=== PATIENT | male | born 1990 | race Caucasian/White ===

== ENCOUNTER 2017-01-28 13:43 | Emergency (ER) | payer BC, OTHER ==
--- NOTE | 2017-01-28 14:20 | Emergency Department Record ---
History of Present Illness - General Chief complaint: Eye Problem Stated complaint: OBJECT IN LT EYE Time Seen by Provider: 01/28/17 13:50 Source: Patient, RN notes reviewed Mode of Arrival: Ambulatory - History of Present Illness Initial comments: patient got something in the left eye and he rinsed it out and it is getting better each day. Onset/Timin -: Days(s) Onset Description: Sudden Location: Left eye Place: Home, Street/outdoors If Injury: Chemical exposure, Other Eye Symptoms: Foreign body sensation Consistency: Constant Associated Symptoms: Other Treatments Prior to Arrival: None - Related Data Visual acuity (L) = 20/: 25 Visual acuity (R) = 20/: 25 With correction: No Hx Tetanus Toxoid Vaccination: Yes Home Medications Medication Instructions Recorded Confirmed Last Taken No Home Med [NO HOME MEDS] 01/28/17 01/28/17 Unknown Allergies Allergy/AdvReac Type Severity Reaction Status Date / Time amoxicillin Allergy PT UNSURE Verified 01/28/17 13:55 OF REACTION Penicillins Allergy PT UNSURE Verified 01/28/17 13:55 OF REACTION Travel Screening - Travel/Exposure Within Last 30 Days Have you traveled within the last 30 days?: No Review of Systems Reviewed: No additional complaints except as noted below Constitutional: Reports: As per HPI. Denies: Chills, Fever, Malaise, Night sweats, Weakness, Weight change Eyes: Reports: As per HPI. Denies: Eye discharge, Eye pain, Photophobia, Vision change ENT: Reports: As per HPI. Denies: Congestion, Dental pain, Ear pain, Epistaxis , Hearing loss, Throat pain Respiratory: Reports: As per HPI. Denies: Cough, Dyspnea, Hemoptysis, Stridor, Wheezes Cardiovascular: Reports: As per HPI. Denies: Arrhythmia, Chest pain, Dyspnea on exertion, Edema, Murmurs, Orthopnea, Palpitations, Paroxysmal nocturnal dyspnea, Rheumatic Fever, Syncope Endocrine: Reports: As per HPI. Denies: Fatigue, Heat or cold intolerance, Polydipsia, Polyuria Gastrointestinal: Reports: As per HPI. Denies: Abdominal pain, Constipation, Diarrhea, Hematemesis, Hematochezia, Melena, Nausea, Vomiting Genitourinary: Reports: As per HPI. Denies: Dysuria, Frequency, Hematuria, Incontinence, Retention, Testicular pain, Testicular mass, Urgency Musculoskeletal: Reports: As per HPI. Denies: Arthralgia, Back pain, Gout, Joint swelling, Myalgia, Neck pain Skin: Reports: As per HPI. Denies: Bruising, Change in color, Change in hair/ nails, Lesions, Pruritus, Rash Neurological: Reports: As per HPI. Denies: Abnormal gait, Confusion, Headache, Numbness, Paresthesias, Seizure, Tingling, Tremors, Vertigo, Weakness Psychiatric: Reports: As per HPI. Denies: Anxiety, Auditory hallucinations, Depression, Homicidal thoughts, Suicidal thoughts, Visual hallucinations Hematological/Lymphatic: Reports: As per HPI. Denies: Anemia, Blood Clots, Easy bleeding, Easy bruising, Swollen glands Past Medical History - SOCIAL HISTORY Smoking Status: Never smoker Alcohol Use: Occasional Drug Use: None - RESPIRATORY Hx Respiratory Disorders: No - CARDIOVASCULAR Hx Cardio Disorders: No - NEURO Hx Neuro Disorders: No - GI Hx GI Disorders: No - Hx Genitourinary Disorders: No - ENDOCRINE Hx Endocrine Disorders: No - MUSCULOSKELETAL Hx Musculoskeletal Disorders: No - PSYCH Hx Psych Problems: No - HEMATOLOGY/ONCOLOGY Hx Hematology/Oncology Disorders: No Family Medical History Any Significant Family History?: No Physical Exam - General General Appearance: Alert, Oriented x3, Cooperative, No acute distress - Head Head exam: Normal inspection - Eye Eye exam: Normal appearance, PERRL Pupils: Normal accommodation With correction: No - ENT ENT exam: Normal exam, Mucous membranes moist, Normal external ear exam, Normal orophraynx, TM's normal bilaterally Ear exam: Normal external inspection. negative: External canal tenderness Nasal Exam: Normal inspection. negative: Discharge, Sinus tenderness Mouth exam: Normal external inspection, Tongue normal Teeth exam: Normal inspection. negative: Dental caries Throat exam: Normal inspection. negative: Tonsillar erythema, Tonsillar exudate - Neck Neck exam: Normal inspection, Full ROM. negative: Tenderness - Respiratory Respiratory exam: Normal lung sounds bilaterally. negative: Respiratory distress - Cardiovascular Cardiovascular Exam: Regular rate, Normal rhythm, Normal heart sounds - GI/Abdominal GI/Abdominal exam: Soft, Normal bowel sounds. negative: Tenderness - Rectal Rectal exam: Deferred - exam: Deferred - Extremities Extremities exam: Normal inspection, Full ROM, Normal capillary refill. negative: Tenderness - Back Back exam: Reports: Normal inspection, Full ROM. Denies: Muscle spasm, Rash noted, Tenderness - Neurological Neurological exam: Alert, Normal gait, Oriented X3, Reflexes normal - Psychiatric Psychiatric exam: Normal affect, Normal mood - Skin Skin exam: Dry, Intact, Normal color, Warm Course Vital Signs 01/28/17 13:50 Temperature 97.5 F L Pulse Rate 74 Respiratory 18 Rate Blood Pressure 133/103 Pulse Ox 97 - Reevaluation(s) Reevaluation #1: left eye no redness and fluorescein neg and everted lids no FB's seen and slit lamp no cornea FB seen 01/28/17 14:18 Disposition Clinical Impression: Conjunctival abrasion Qualifiers: Encounter type: initial encounter Laterality: left Qualified Code(s): S05.02XA - Injury of conjunctiva and corneal abrasion without foreign body, left eye, initial encounter Disposition: Home, Self-Care Condition: (1) Good Instructions: Corneal Abrasion (ED) Additional Instructions: follow up with family in 2 days if not better Time of Disposition: 14:21 Quality - Quality Measures Quality Measures: N/A - Blood Pressure Screening Does Patient Have Any of the Following: No Blood Pressure Classification: Hypertensive Reading Systolic Measurement: 133 Diastolic Measurement: 103 Screening for High Blood Pressure: < First Hypertensive BP, F/U Documented > [ G8950] First Hypertensive Follow-up Interventions: Referral to alternative/primary care provider.
== END 2017-01-28 14:34 | disposition home or self-care (01) ==
LOC: ER 13:43
DX: S05.02XA Injury of conjunctiva and corneal abrasion without foreign body, left eye, initial encounter (principal); W22.8XXA Striking against or struck by other objects, initial encounter; Y92.009 Unspecified place in unspecified non-institutional (private) residence as the place of occurrence of the external cause
CPT/HCPCS: 99283

== ENCOUNTER 2017-08-24 10:32 | Emergency (ER) | payer SELFPAY ==
[2017-08-24] MEDS ORDERED: Diph,Pert(Acell),Tet Vac 0.5 ML SYR IM ONE (10:46)
--- NOTE | 2017-08-24 10:52 | Emergency Department Record ---
History of Present Illness - General Chief complaint: Extremity Problem Stated complaint: INJURY TO FINGERS Time Seen by Provider: 08/24/17 10:41 Source: Patient Mode of Arrival: Ambulatory Limitations: No limitations - History of Present Illness Initial comments: The patient had his L hand crushed at work an hour ago. The main injuries are to the finger tips of the 3rd and 4th fingers. He is having some thumb pain but is able to move it. MD Complaint: Extremity pain Onset/Timin -: Hour(s) Location: Left, Hand Improves with: Nothing Worsens with: Nothing - Related Data Previous Rx's Medication Instructions Recorded Cephalexin [Keflex] 500 mg PO QID #28 cap 08/24/17 Allergies Allergy/AdvReac Type Severity Reaction Status Date / Time amoxicillin Allergy PT UNSURE Verified 08/24/17 10:41 OF REACTION Penicillins Allergy PT UNSURE Verified 08/24/17 10:41 OF REACTION Travel Screening - Travel/Exposure Within Last 30 Days Have you traveled within the last 30 days?: No - Travel/Exposure Within Last Year Have you traveled outside the [place] in the last year?: No - Additonal Travel Details Have you been exposed to anyone with a communicable illness?: No - Travel Symptoms Symptom Screening: None Review of Systems Constitutional: Denies: Chills, Fever Past Medical History - SOCIAL HISTORY Smoking Status: Current every day smoker Alcohol Use: Rare Drug Use: None - RESPIRATORY Hx Respiratory Disorders: No - CARDIOVASCULAR Hx Cardio Disorders: No - NEURO Hx Neuro Disorders: No - GI Hx GI Disorders: No - Hx Genitourinary Disorders: No - ENDOCRINE Hx Endocrine Disorders: No - MUSCULOSKELETAL Hx Musculoskeletal Disorders: No - PSYCH Hx Psych Problems: No - HEMATOLOGY/ONCOLOGY Hx Hematology/Oncology Disorders: No Family Medical History Any Significant Family History?: No Physical Exam - General General Appearance: Alert, Cooperative, No acute distress - Head Head exam: Atraumatic, Normocephalic - Eye Eye exam: Normal appearance, PERRL - Extremities Extremities exam: Normal capillary refill, Tenderness (There is tenderness to the L 3rd and 4th fingers mainly with significant swelling. There are small abrasions to the finger pads of the 3rd and 4th fingers but nothing to suture.) . negative: Normal inspection (There is swelling to the finger tips of the 3rd and 4th fingers. There are wounds at the distal nail margins but there is nothing to suture. The L hand is mildly tender over the 1st MC bone with decreased full ROM of the thumb due to pain. The L hand is NVI.), Full ROM ( There is decreased full ROM to the thumb, 3rd and 4th finger DIP joints due to pain and swelling. ) Course Vital Signs 08/24/17 10:35 Temperature 98.1 F Pulse Rate 86 Respiratory 18 Rate Blood Pressure 150/95 Pulse Ox 99 - Reevaluation(s) Reevaluation #1: The patient is doing well at this time. His superficial wounds were cleaned up with betadine and sterile saline. The superficial abrasions were minimally debrided but there was nothing to suture. We will place the patient in tube gauze dressing and have him recheck in the ER or his PCP in 2 days. I did explain to the patient due to the trauma and swelling it is difficulty to assess his tendon function but it will be easier on Wed when the swelling decreases. 08/24/17 11:36 08/24/17 11:38 Medical Decision Making - Data Complexity MDM Data: X-Ray Ordered and/or Reviewed - Radiology Data Radiology results: Report reviewed (L hand: Neg.) Disposition Disposition: Discharge Clinical Impression: Finger injury Qualifiers: Encounter type: initial encounter Laterality: left Qualified Code(s): S69.92XA - Unspecified injury of left wrist, hand and finger(s), initial encounter Disposition: Home, Self-Care Condition: (2) Stable Instructions: Crush Injury (ED) Additional Instructions: Please keep the dressings clean and dry and take the Keflex as directed. Use Motrin or Tylenol for pain and return to the ER for recheck in 2 days. Prescriptions: Cephalexin [Keflex] 500 mg PO QID #28 cap Forms: Patient Portal Access Time of Disposition: 11:40 Quality - Quality Measures Quality Measures: N/A - Blood Pressure Screening View Details: Yes Does Patient Have Any of the Following: No Blood Pressure Classification: Pre-Hypertensive BP Reading Systolic Measurement: 136 Diastolic Measurement: 83 Screening for High Blood Pressure: < Pre-Hypertensive BP, F/U Documented > [ G8950] Pre-Hypertensive Follow-up Interventions: Referral to alternative/primary care provider.
[2017-08-24] MEDS ORDERED: CEPHALEXIN 500 MG CAPSULE PO STA (10:57)
[2017-08-24] MEDS ORDERED: IBUPROFEN 600 MG TABLET PO ONE (11:21)
--- NOTE | 2017-08-26 12:59 | RADIOLOGY REPORT ---
EXAM: HAND, LEFT 3 VIEWS HISTORY: WORK-RELATED INJURY WITH TRAUMA TO THIRD AND FOURTH FINGERS. TECHNIQUE: Three views, left hand. COMPARISON: None. ENCOUNTER: Initial. FINDINGS: Some soft tissue swelling is seen particularly involving the third finger. No definite fracture or dislocation identified involving the left hand. IMPRESSION: MILD SOFT TISSUE SWELLING PARTICULARLY INVOLVING THE THIRD FINGER. NO FRACTURE IDENTIFIED. JOB NUMBER: [id number] MTDD
== END 2017-08-24 11:57 | disposition home or self-care (01) ==
LOC: ER 10:32
DX: S67.02XA Crushing injury of left thumb, initial encounter (principal); S67.193A Crushing injury of left middle finger, initial encounter; S67.195A Crushing injury of left ring finger, initial encounter; W23.0XXA Caught, crushed, jammed, or pinched between moving objects, initial encounter; Y99.0 Civilian activity done for income or pay; F17.210 Nicotine dependence, cigarettes, uncomplicated
CPT/HCPCS: 90715; 96372; 99283; 99284

== ENCOUNTER 2017-08-26 13:33 | Emergency (ER) | payer SELFPAY ==
--- NOTE | 2017-08-26 13:49 | Emergency Department Record ---
History of Present Illness - General Chief Complaint: Wound, check Stated Complaint: RECHECK Time Seen by Provider: 08/26/17 13:34 Source: Patient Mode of arrival: Ambulatory Limitations: No limitations - History of Present Illness Initial Comments: 27 yo male presents to ED for re-evaluation of the left middle and ring fingers following a crush injury 2 days ago. Patient was seen and evaluated at that time, started on Keflex. Patient reports radiographs were negative for fracture. Patient denies any new symptoms, redness, worsening swelling, or discharge from the wounds. Patient denies health problems at his baseline. MD Complaint: Wound re-check Onset/Timin -: Days(s) Initial Visit For: Other Returns Today for: Wound recheck Symptoms Since Prior Visit: No new symptoms Associated Symptoms: None - Related Data Previous Rx's Medication Instructions Recorded Cephalexin [Keflex] 500 mg PO QID #28 cap 08/24/17 Allergies Allergy/AdvReac Type Severity Reaction Status Date / Time amoxicillin Allergy PT UNSURE Verified 08/24/17 10:41 OF REACTION Penicillins Allergy PT UNSURE Verified 08/24/17 10:41 OF REACTION Review of Systems Constitutional: Denies: Chills, Fever, Malaise, Night sweats Eyes: Denies: Eye discharge, Eye pain ENT: Denies: Congestion, Ear pain Respiratory: Denies: Cough, Dyspnea Cardiovascular: Denies: Chest pain, Dyspnea on exertion Endocrine: Denies: Fatigue, Heat or cold intolerance Gastrointestinal: Denies: Abdominal pain, Nausea, Vomiting Genitourinary: Denies: Incontinence, Retention Musculoskeletal: Reports: Arthralgia. Denies: Back pain, Gout Skin: Denies: Bruising, Change in color Neurological: Denies: Abnormal gait, Confusion, Headache, Seizure Psychiatric: Denies: Anxiety Hematological/Lymphatic: Denies: Anemia, Blood Clots Past Medical History - SOCIAL HISTORY Smoking Status: Current every day smoker Drug Use: None - RESPIRATORY Hx Respiratory Disorders: No - CARDIOVASCULAR Hx Cardio Disorders: No - NEURO Hx Neuro Disorders: No - GI Hx GI Disorders: No - Hx Genitourinary Disorders: No - ENDOCRINE Hx Endocrine Disorders: No - MUSCULOSKELETAL Hx Musculoskeletal Disorders: No - PSYCH Hx Psych Problems: No - HEMATOLOGY/ONCOLOGY Hx Hematology/Oncology Disorders: No Physical Exam - General General Appearance: Alert, Oriented x3, Cooperative, Mild distress Limitations: No limitations - Head Head exam: Atraumatic, Normocephalic, Normal inspection Head exam detail: negative: Abrasion, Contusion, Jack's sign, General tenderness, Hematoma, Laceration - Eye Eye exam: Normal appearance. negative: Conjunctival injection, Periorbital swelling, Periorbital tenderness, Scleral icterus - ENT Ear exam: negative: Auricular hematoma, Auricular trauma Nasal Exam: negative: Active bleeding, Discharge, Dried blood, Foreign body Mouth exam: negative: Drooling, Laceration, Muffled voice, Tongue elevation - Neck Neck exam: Normal inspection. negative: Meningismus, Tenderness - Respiratory Respiratory exam: Normal lung sounds bilaterally. negative: Rales, Respiratory distress, Rhonchi, Stridor - Cardiovascular Cardiovascular Exam: Regular rate, Normal rhythm, Normal heart sounds - GI/Abdominal GI/Abdominal exam: Soft. negative: Rebound, Rigid, Tenderness - Rectal Rectal exam: Deferred - exam: Deferred - Extremities Extremities exam: Tenderness, Other (TTP and STS to the tuft of the left middle and ring fingers, moderate subungal hematoma to the middle digit (approx. 50%), no erythema or clinical signs of infection on examination.). negative: Calf tenderness, Pedal edema - Back Back exam: Denies: CVA tenderness (R), CVA tenderness (L) - Neurological Neurological exam: Alert, Normal gait, Oriented X3 - Psychiatric Psychiatric exam: Normal affect, Normal mood - Skin Skin exam: Normal color. negative: Abrasion Type of lesion: negative: abrasion Course - Reevaluation(s) Reevaluation #1: 08/26/17 13:53 Wounds were cleaned and re-wrapped Patient was instructed to continue Keflex as prescribed with return for any worsening of his symptoms. Patient appears stable for discharge at this time. Disposition Disposition: Discharge Clinical Impression: Finger injury Qualifiers: Encounter type: initial encounter Laterality: left Qualified Code(s): S69.92XA - Unspecified injury of left wrist, hand and finger(s), initial encounter Disposition: Home, Self-Care Condition: (2) Stable Instructions: Crush Injury (ED) Additional Instructions: Return to ED if your symptoms worsen or if you have any concerns. Continue Keflex as prescribed. Follow-up with your family doctor in 3-5 days as directed. Forms: Patient Portal Access Time of Disposition: 13:49 Quality - Quality Measures Quality Measures: N/A - Blood Pressure Screening Does Patient Have Any of the Following: No Blood Pressure Classification: Pre-Hypertensive BP Reading Systolic Measurement: 132 Diastolic Measurement: 80 Screening for High Blood Pressure: < Pre-Hypertensive BP, F/U Documented > [ G8950] Pre-Hypertensive Follow-up Interventions: Referral to alternative/primary care provider.
== END 2017-08-26 14:10 | disposition home or self-care (01) ==
LOC: ER 13:33
DX: S67.02XA Crushing injury of left thumb, initial encounter (principal); S67.193A Crushing injury of left middle finger, initial encounter; S67.195A Crushing injury of left ring finger, initial encounter; W23.0XXA Caught, crushed, jammed, or pinched between moving objects, initial encounter; Y99.0 Civilian activity done for income or pay; F17.210 Nicotine dependence, cigarettes, uncomplicated
CPT/HCPCS: 99282

== ENCOUNTER 2018-11-16 18:20 | Emergency (ER) | payer BC ==
--- NOTE | 2018-11-16 20:51 | Emergency Department Record ---
History of Present Illness - General Chief complaint: Extremity Problem Stated complaint: RT HAND INDEX LAC Time Seen by Provider: 11/16/18 18:52 Source: Patient Mode of Arrival: Ambulatory Limitations: No limitations - History of Present Illness Initial comments: pt cut his r index finger w a machete. it has been bleeding a lot Complaint: Extremity pain Onset/Timin -: Hour(s) Location: Right History of Same: No Improves with: Nothing Worsens with: Nothing Associated Symptoms: Denies other symptoms - Related Data Previous Rx's Medication Instructions Recorded Cephalexin [Keflex] 500 mg PO QID #28 cap 08/24/17 Allergies Allergy/AdvReac Type Severity Reaction Status Date / Time amoxicillin Allergy PT UNSURE Verified 11/16/18 20:03 OF REACTION Penicillins Allergy PT UNSURE Verified 11/16/18 20:03 OF REACTION Travel Screening - Travel/Exposure Within Last 30 Days Have you traveled within the last 30 days?: No - Travel/Exposure Within Last Year Have you traveled outside the [place] in the last year?: No - Additonal Travel Details Have you been exposed to anyone with a communicable illness?: No - Travel Symptoms Symptom Screening: None Past Medical History - SOCIAL HISTORY Smoking Status: Current every day smoker Alcohol Use: Occasional Drug Use: None - RESPIRATORY Hx Respiratory Disorders: No - CARDIOVASCULAR Hx Cardio Disorders: No - NEURO Hx Neuro Disorders: No - GI Hx GI Disorders: No - Hx Genitourinary Disorders: No - ENDOCRINE Hx Endocrine Disorders: No - MUSCULOSKELETAL Hx Musculoskeletal Disorders: No - PSYCH Hx Psych Problems: No - HEMATOLOGY/ONCOLOGY Hx Hematology/Oncology Disorders: No Family Medical History Any Significant Family History?: No Physical Exam - General General Appearance: Alert, Oriented x3, Cooperative, Mild distress - Head Head exam: Normal inspection - Eye Eye exam: Normal appearance, PERRL, EOMI Pupils: Normal accommodation - ENT ENT exam: Normal exam, Mucous membranes moist, Normal external ear exam, Normal orophraynx, TM's normal bilaterally Ear exam: Normal external inspection. negative: External canal tenderness Nasal Exam: Normal inspection. negative: Discharge, Sinus tenderness Mouth exam: Normal external inspection, Tongue normal Teeth exam: Normal inspection. negative: Dental caries Throat exam: Normal inspection. negative: Tonsillar erythema, Tonsillar exudate - Neck Neck exam: Normal inspection, Full ROM. negative: Tenderness - Respiratory Respiratory exam: Normal lung sounds bilaterally. negative: Respiratory distress - Cardiovascular Cardiovascular Exam: Regular rate, Normal rhythm, Normal heart sounds - GI/Abdominal GI/Abdominal exam: Soft, Normal bowel sounds. negative: Tenderness - Rectal Rectal exam: Deferred - exam: Deferred - Extremities Extremities exam: Normal inspection, Full ROM, Normal capillary refill. negative: Tenderness - Back Back exam: Reports: Normal inspection, Full ROM. Denies: Muscle spasm, Rash noted, Tenderness - Neurological Neurological exam: Alert, CN II-XII intact, Normal gait, Oriented X3 - Psychiatric Psychiatric exam: Normal affect, Normal mood - Skin Skin exam: Dry, Intact, Normal color, Warm Course Vital Signs 11/16/18 18:39 Temperature 98.5 F Pulse Rate [ 81 Pulse Ox Probe] Respiratory 18 Rate Blood Pressure 137/91 [Left Arm] Pulse Ox 99 Disposition Disposition: Discharge Clinical Impression: Laceration of right index finger Qualifiers: Encounter type: initial encounter Damage to nail status: with damage Foreign body presence: without foreign body Qualified Code(s): S61.310A - Laceration without foreign body of right index finger with damage to nail, initial encounter Disposition: Home, Self-Care Condition: (1) Good Instructions: Laceration (ED), Care For Your Absorbable Stitches (ED) Additional Instructions: follow up with family doctor. return sooner if worse. external sutures out in 10 days, keep clean Quality - Quality Measures Quality Measures: N/A - Blood Pressure Screening Does Patient Have Any of the Following: No Blood Pressure Classification: Hypertensive Reading Systolic Measurement: 137 Diastolic Measurement: 91 Screening for High Blood Pressure: < Pre-Hypertensive BP, F/U Documented > [G8950] Pre-Hypertensive Follow-up Interventions: Follow-up with rescreen every year. Laceration - Other - Time Out Informed consent:: Informed consent obtained Confirmed first & last name, , procedure, correct site?: Yes Start Date:: 11/16/18 Start Time:: 20:20 - Location Location of laceration:: Right Laceration located on:: Finger Laceration digit detail:: 2nd Length of laceration:: 3 Length of laceration:: cm - Clean and Prep Laceration cleaning method:: Cleansed, Copious Irrigation Laceration cleaning agent:: Normal Saline - Local Anesthetic Lidocaine used:: 1% Lidocaine dose:: 1 mL - Procedural Detail Tissue detail:: Torn Foreign body in the wound?: No Undermining was preformed?: Yes Stent applied?: No Kamuela applied?: No Retention suture(s) applied?: Yes Skin suture pattern:: Interrupted Suture material/size:: 5-0: Prolene Number of skin sutures:: 4 Sub Q suture pattern:: Interrupted Suture material/size:: 5-0: Vicryl Number of sub Q sutures:: 3 Neurovascular intact?: Yes - Post Procedural Detail Complications:: Yes (tissue missing, 2 small arterial bleeds closed w vicryl) Procedure Tolerated by Patient:: Well
== END 2018-11-16 21:05 | disposition home or self-care (01) ==
LOC: ER 18:20
DX: S61.310A Laceration without foreign body of right index finger with damage to nail, initial encounter (principal); R42 Dizziness and giddiness; W27.8XXA Contact with other nonpowered hand tool, initial encounter; Y93.H9 Activity, other involving exterior property and land maintenance, building and construction
CPT/HCPCS: 12042; 99284

== ENCOUNTER 2019-03-31 11:00 | Emergency (ER) | payer BC ==
[2019-03-31] MEDS ORDERED: 0.9 % SODIUM CHLORIDE 1,000 ML BAG IV ONE (11:41)
--- NOTE | 2019-03-31 11:51 | Emergency Department Record ---
History of Present Illness - General Chief Complaint: Dizziness Stated Complaint: SOB, DIZZINESS Time Seen by Provider: 03/31/19 11:29 Source: Patient Mode of Arrival: Ambulatory Limitations: No limitations - History of Present Illness Initial Comments: The patient is here due to multiple complaints. He was at work when he suddenly became weak and lightheaded. He did have a frontal MAXWELL at the time and did have cramping in his hands. Those symptoms are much better now. He also has had sharp stabbing R upper CP with SOB for 6 months. The pain and breathing are not better or worse with exertion or eating. He has seen his PCP for this and was placed on an antidepressant and an inhaller. The patient is very concerned he may have cancer. He has a long hx of similar MAXWELL's also and has had that issue for years. Today's MAXWELL is very similar to his chronic MAXWELL's and it is basically gone now. MD Complaint: Dizziness, Lightheadedness Onset/Timin -: Minutes(s) Timing: Sudden onset History of Same: Yes Associated Symptoms: Weakness - Simpson Coma Scale Eye Response: (4) Open spontaneously Motor Response: (6) Obeys commands Verbal Response: (5) Oriented Simpson Total: 15 - Related Data Previous Rx's Medication Instructions Recorded Naproxen [Naprosyn] 500 mg PO BID #14 tablet. 03/31/19 Allergies Allergy/AdvReac Type Severity Reaction Status Date / Time amoxicillin Allergy PT UNSURE Verified 11/16/18 20:03 OF REACTION Penicillins Allergy PT UNSURE Verified 11/16/18 20:03 OF REACTION Travel Screening - Travel/Exposure Within Last 30 Days Have you traveled within the last 30 days?: No - Travel/Exposure Within Last Year Have you traveled outside the [place] in the last year?: No - Additonal Travel Details Have you been exposed to anyone with a communicable illness?: No Review of Systems Constitutional: Reports: Malaise. Denies: Chills, Fever Eyes: Denies: Eye discharge ENT: Denies: Congestion Respiratory: Denies: Cough, Dyspnea Cardiovascular: Reports: Chest pain (chronic.) Endocrine: Reports: Fatigue Gastrointestinal: Denies: Nausea Genitourinary: Reports: Dysuria Musculoskeletal: Denies: Arthralgia Past Medical History - SOCIAL HISTORY Smoking Status: Former smoker Alcohol Use: Rare Drug Use: None - RESPIRATORY Hx Respiratory Disorders: No - CARDIOVASCULAR Hx Cardio Disorders: No - NEURO Hx Neuro Disorders: No - GI Hx GI Disorders: No - Hx Genitourinary Disorders: No - ENDOCRINE Hx Endocrine Disorders: No - MUSCULOSKELETAL Hx Musculoskeletal Disorders: No - PSYCH Hx Psych Problems: No - HEMATOLOGY/ONCOLOGY Hx Hematology/Oncology Disorders: No Family Medical History Any Significant Family History?: No Physical Exam - General General Appearance: Alert, Oriented x3, Cooperative, No acute distress - Head Head exam: Atraumatic, Normocephalic, Normal inspection - Eye Eye exam: Normal appearance, PERRL, EOMI - ENT ENT exam: Normal exam, Mucous membranes moist, Normal external ear exam, Normal orophraynx, TM's normal bilaterally Throat exam: Normal inspection. negative: Tonsillar erythema, Tonsillar exudate - Neck Neck exam: Normal inspection, Full ROM. negative: Tenderness - Respiratory Respiratory exam: Normal lung sounds bilaterally, Chest wall tenderness (The R upper CP is 100% reproducible to palpation.). negative: Respiratory distress - Cardiovascular Cardiovascular Exam: Regular rate, Normal rhythm, Normal heart sounds - GI/Abdominal GI/Abdominal exam: Soft, Normal bowel sounds. negative: Tenderness - Extremities Extremities exam: Normal inspection, Full ROM, Normal capillary refill. negative: Tenderness - Back Image of Body Front/Back: 1 - Area of very reproducible R upper chest pain. - Neurological Neurological exam: Alert, Normal gait, Oriented X3. negative: Abnormal gait, Altered, Motor sensory deficit - Psychiatric Psychiatric exam: negative: Anxious - Skin Skin exam: negative: Rash Course Vital Signs 03/31/19 11:19 Temperature 98.0 F Pulse Rate 75 Respiratory 18 Rate Blood Pressure 134/90 Pulse Ox 98 - Reevaluation(s) Reevaluation #1: The patient is doing very well at this time. He denies any CP or SOB presently and also states his MAXWELL has resolved. I did discuss the neg lab tests with the patient and the neg xrays also. He is to see his PCP next week as already planned and to return to the ER for any worsening issues. 03/31/19 13:34 Medical Decision Making - Data Complexity MDM Data: Labs Ordered and/or Reviewed, X-Ray Ordered and/or Reviewed, EKG Ordered and/or Reviewed - Lab Data Result diagrams: 03/31/19 12:05 03/31/19 12:05 - EKG Data -: EKG Interpreted by Me EKG: No Acute Changes, Normal EKG - Radiology Data Radiology results: Report reviewed (Head CT and CXR: Neg for any acute changes.) Disposition Disposition: Discharge Clinical Impression: Lightheadedness Disposition: Home, Self-Care Condition: (2) Stable Instructions: Dizziness (ED) Additional Instructions: Please rest today and drink plenty of fluids. Please take Naprosyn for pain and please keep the appointment with Dr. Del Cid for next week. Return to the ER for any worsening or new issues. Prescriptions: Naproxen [Naprosyn] 500 mg PO BID #14 tablet.dr Forms: Patient Portal Access Time of Disposition: 13:36 Quality - Quality Measures Quality Measures: N/A - Blood Pressure Screening View Details: Yes Does Patient Have Any of the Following: No Blood Pressure Classification: Hypertensive Reading Systolic Measurement: 134 Diastolic Measurement: 90 Screening for High Blood Pressure: < First Hypertensive BP, F/U Documented > [G8950] First Hypertensive Follow-up Interventions: Referral to alternative/primary care provider.
[2019-03-31 12:17] LABS: ABSOLUTE NEUTROPHIL COUNT 2.41; BASO % 0.5 % (0-6); EOS % 2.1 % (0-6); GRAN % 56.1 % (47-80); HEMATOCRIT 40.2 % (42.0-52.0); HEMOGLOBIN 13.9 gm/dl (14.0-18.0); LYMPH % 32.2 % (16-45); MEAN CELL VOLUME 83.4 fl (81-97); MEAN CORPUSCULAR HEMOGLOBIN 28.8 pg (27-33); MEAN CORPUSCULAR HGB CONC 34.6 g/dl (32-36); MEAN PLATELET VOLUME 9.6 fl (7.4-10.4); MONO % 9.1 % (0-9); PLATELET COUNT 200 K/uL (130-400); RED BLOOD COUNT 4.82 M/uL (4.40-5.70); RED CELL DISTRIBUTION WIDTH 12.5 % (11.5-14.5); WHITE BLOOD COUNT W/O DIFF 4.3 K/uL (4.2-12.2)
[2019-03-31 12:18] LABS: URINE APPEARANCE CLEAR; URINE BILIRUBIN NEGATIVE (NEGATIVE); URINE BLOOD NEGATIVE (NEGATIVE); URINE COLOR YELLOW; URINE GLUCOSE (UA) NEGATIVE (NEGATIVE); URINE KETONE NEGATIVE (NEGATIVE); URINE LEUKOCYTE ESTERASE NEGATIVE (NEGATIVE); URINE NITRITE NEGATIVE (NEGATIVE); URINE PROTEIN NEGATIVE (NEGATIVE); URINE UROBILINOGEN 0.2 E.U./dL (0.20 - 1.00)
[2019-03-31 12:28] LABS: BLOOD UREA NITROGEN 10 mg/dL (6-20); CREATININE 0.8 mg/dL (0.7-1.2); EST GLOMERULAR FILTRATION RATE > 60 mL/min; TOTAL PROTEIN 6.9 g/dL (6.6-8.7)
[2019-03-31 12:30] LABS: GLUCOSE,RANDOM 89 mg/dL (74-109)
[2019-03-31 12:33] LABS: ALB/GLOB RATIO 1.8 (1.1-1.8); ALBUMIN 4.4 g/dL (4.0-5.0); ALKALINE PHOSPHATASE 59 U/L (40-129); ALT/SGPT 19 U/L (<41); AST/SGOT 17 U/L (10.0-50.0)
[2019-03-31 12:44] LABS: THYROID STIMULATING HORMONE 1.94 uIU/mL (0.270-4.20)
--- NOTE | 2019-03-31 12:52 | RADIOLOGY REPORT ---
EXAMINATION: Two View Chest Radiographs EXAM DATE: 03/31/2019 12:22 PM TECHNIQUE: Frontal and lateral views INDICATION: R upper CP COMPARISON: None ENCOUNTER: Not applicable FINDINGS: The heart, mediastinum, and pulmonary vasculature are normal. No lung consolidation or pleural effu sions are present. IMPRESSION: No acute cardiopulmonary disease is present. Dictated by: Marilia Ramires MD on 03/31/2019 12:49 PM. .
--- NOTE | 2019-03-31 13:29 | CT SCAN REPORT ---
EXAMINATION: CT Head without IV Contrast EXAM DATE: 03/31/2019 1:21 PM TECHNIQUE: Standard protocol CT images of the head were obtained without intravenous contrast. Watson l and sagittal reconstructed images were created. INDICATION: MAXWELL. The technologist elicited the history: Shortness of breath, headache, dizziness, hot flashes, chest pain and nausea. Symptoms for 6 months or so. COMPARISON: CT head without contrast, 05/17/2011. HAND DOMINANCE: Unknown. ENCOUNTER: Not applicable FINDINGS: 1. There is no intracranial mass, midline shift, extraaxial fluid collection or hemorrhage. 2. The ventricles, sulci and cisterns are normal. 3. There are no suspicious area of altered attenuation. 4. There is no fracture. 5. The visualized aspects of the orbits, paranasal sinuses, and mastoid air cells are normal. 6. If the symptoms persist, MRI could be helpful in further evaluation. IMPRESSION: No acute CT intracranial abnormalities currently seen. Dictated by: Marilia Ramires MD on 03/31/2019 1:24 PM. .
== END 2019-03-31 13:51 | disposition home or self-care (01) ==
LOC: ER 11:00
DX: R42 Dizziness and giddiness (principal); R06.02 Shortness of breath; R07.89 Other chest pain; R53.1 Weakness; R51 Headache; R25.2 Cramp and spasm; Z87.891 Personal history of nicotine dependence
CPT/HCPCS: 70450; 71046; 80053; 81003; 84443; 84484; 85025; 93005; 93010; 96360; 96361; 99284; J7030